=== PATIENT | male | born 2000 | race African-American/Black ===

== ENCOUNTER 2021-09-24 22:31 | Emergency (ER) | payer SELFPAY ==
[~2021-09-24] VITALS: Ht 172.7 cm; Wt 66.0 kg
[2021-09-24 22:34] VITALS: BP 126/99
[2021-09-24] MEDS ORDERED: SODIUM CHLORIDE 0.9% 1,000 ML IV ONE (23:00)
[2021-09-24 23:19] LABS: CHLORIDE 103 mEq/L (98-107)
[2021-09-24 23:25] LABS: ETHANOL BLOOD < 10 mg/dL
[2021-09-24 23:33] LABS: BASOPHILS % 0.6 % (0.0-2.0); EOSINOPHILS % 0.1 % (0.0-5.0); HEMOGLOBIN. 14.5 g/dL (14.0-18.0); LYMPHOCYTES % 17.9 % (20.0-50.0); MEAN CORPUSCULAR HEMOGLOBIN 30.4 pg (28.0-32.0); MEAN CORPUSCULAR VOLUME 88.4 fL (80.0-94.0); MEAN PLATELET VOLUME 8.1 fl (7.4-10.4); MONOCYTES % 6.6 % (2.0-8.0); NEUTROPHILS % 74.8 % (40.0-76.0); PLATELET 281 x1000/uL (130-400); RED BLOOD CELL COUNT 4.76 mill/uL (4.7-6.1); RED CELL DISTRIBUTION WIDTH 12.6 % (11.6-14.6)
== END 2021-09-25 01:40 | disposition left against medical advice (07) ==
LOC: ER 22:31
DX: M79.18 Myalgia, other site (principal); Z53.21 Procedure and treatment not carried out due to patient leaving prior to being seen by health care provider
CPT/HCPCS: 36415; 80053; 80320; 85025; J7030; 99283; G0480